=== PATIENT | female | born 1980 | race Caucasian/White ===

== ENCOUNTER 2016-11-19 23:31 | Emergency (ER) | payer OTHER ==
[2016-11-19 23:43] VITALS: BP 136/77; PULSE 95; RESP 18; TEMP 99
[2016-11-20] MEDS ORDERED: RX INFO: IV CONTRAST WAS GIVEN 1 EACH MISC MISCELLANE PRN (00:11)
[2016-11-20] MEDS ORDERED: SODIUM CHLORIDE 0.9% 500 ML IV STA (00:13)
[2016-11-20] MEDS ORDERED: HYDROmorphone 1 MG/ML 1 ML SYRINGE IVP STA (00:13)
[2016-11-20] MEDS ORDERED: ONDANSETRON 4 MG/2 ML VIAL IVP STA (00:13)
[2016-11-20 01:00] LABS: Appearance,Urine Clear (Clear); Bilirubin,Urine Negative (Negative); Glucose,Urine (UA) Negative (Negative); Ketones,Urine Negative (Negative); Leukocyte Esterase,Urine Negative (Negative); Nitrite,Urine Negative (Negative); Protein,Urine Negative (Negative); Specific Gravity,Urine 1.015 (1.001-1.035); UA Billing (MACRO vs. MICRO) CHEM; Urobilinogen,Urine <2.0 mg/dL (<2.0)
[2016-11-20 01:05] LABS: Basophils # (A) 0.1 k/uL (0-0.2); Basophils % (A) 1 %; CH 30.8; CHCM 34.1; Eosinophils # (A) 0.2 k/uL (0-0.7); Eosinophils % (A) 2 %; HCT 43.8 % (34.0-46.0); HDW 2.53; HGB 14.3 gm/dL (11.4-16.0); Luc # (Auto) 0.16; Luc % (Auto) 1; Lymphocytes # (A) 3.3 k/uL (1.0-4.8); Lymphocytes % (A) 30 %; MCH 29.6 pg (25.0-35.0); MCHC 32.6 g/dL (31.0-37.0); MCV 90.7 fL (80.0-100.0); Mean Platelet Volume 6.9; Monocytes # (A) 0.7 k/uL (0-1.0); Monocytes % (A) 6 %; Neutrophils # (A) 6.7 k/uL (1.3-7.7); Neutrophils % (A) 61 %; RBC 4.83 m/uL (3.80-5.40); RDW 13.5 % (11.5-15.5); WBC 11.1 k/uL (3.8-10.6)
[2016-11-20 01:11] LABS: ALT 65 U/L (9-52); AST 27 U/L (14-36); Alkaline Phosphatase 104 U/L (38-126); Anion Gap 9 mmol/L; Blood Urea Nitrogen 12 mg/dL (7-17); Calcium 9.6 mg/dL (8.4-10.2); Carbon Dioxide 26 mmol/L (22-30); Chloride 102 mmol/L (98-107); Glucose 79 mg/dL (74-99); Non-African American GFR(MDRD) >60 (>60 ml/min/1.73 sqM); Potassium 4.2 mmol/L (3.5-5.1); Sodium 137 mmol/L (137-145); Total Bilirubin 0.3 mg/dL (0.2-1.3); Total Protein 6.6 g/dL (6.3-8.2)
[2016-11-20 01:19] LABS: INR 0.9 (<1.2); Partial Thromboplastin Time 22.3 sec (22.0-30.0); Prothrombin Time 9.6 sec (9.0-12.0)
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
== END 2016-11-20 03:51 | disposition home or self-care (01) ==
LOC: EC 23:31
DX: S30.1XXA Contusion of abdominal wall, initial encounter (principal); R07.81 Pleurodynia; F41.9 Anxiety disorder, unspecified; Z79.82 Long term (current) use of aspirin; Z79.899 Other long term (current) drug therapy; Z90.710 Acquired absence of both cervix and uterus; V59.59XA Passenger in pick-up truck or van injured in collision with other motor vehicles in traffic accident, initial encounter; Z98.890 Other specified postprocedural states
CPT/HCPCS: 36415; 80053; 85025; 85610; 85730; 81003; 81025; 71260; 74177; 99285; 96374; 96375; 96361 ×3; J2405; J1170; Q9967

== ENCOUNTER 2016-11-30 14:16 | Observation (INO) | payer OTHER ==
[2016-11-24 14:30] VITALS: BMI 36.8
[~2016-11-30 14:16] MED LIST: DEXAMETHASONE SOD PHOSPHATE 10 MG/ML 1 ML VIAL IV ONE; MIDAZOLAM 2 MG/2 ML VIAL IV PRN; ONDANSETRON 4 MG/2 ML VIAL IVP ONE; SCOPOLAMINE 1.5MG/72HR PATCH TRANSDERM ONE; ceFAZolin 2 GM in SODIUM CHLORIDE 0.9% 100 ML IVPB ONE; fentaNYL (PF) 50 MCG/ML 2 ML AMP IV PRN
[2016-11-30] MEDS ORDERED: LIDOCAINE 1% 20 ML VIAL (10MG/ML) FOR IV START INTRADERMA ONE (14:58)
[2016-11-30] MEDS: LACTATED RINGERS 1,000 ML IV SCH (14:58)
[2016-11-30] MEDS ORDERED: IV FLUID CONTINUATION 1,000 ML IV ONE (15:23)
[2016-11-30] MEDS ORDERED: diphenhydrAMINE 50 MG/ML 1 ML VIAL ONE (15:23)
[2016-11-30] MEDS ORDERED: GLYCOPYRROLATE 0.2 MG/ML 2 ML VIAL ONE (15:23)
[2016-11-30] MEDS ORDERED: ePHEDrine SULFATE/0.9% NACL/PF 50 MG/5 ML SYRINGE IV ONE (15:23)
[2016-11-30] MEDS ORDERED: SUCCINYLCHOLINE CHLORIDE 100 MG/5 ML SYR IV ONE (15:23)
[2016-11-30] MEDS ORDERED: KETAMINE 10 MG/ML 20 ML VIAL ONE (15:23)
[2016-11-30] MEDS ORDERED: fentaNYL (PF) 50 MCG/ML 2 ML AMP ONE (15:23)
[2016-11-30] MEDS ORDERED: PROPOFOL 10 MG/ML 20 ML VIAL IV ONE (15:23)
[2016-11-30] MEDS ORDERED: HYDROmorphone (PF) 1 MG/ML ONE (15:23)
[2016-11-30] MEDS ORDERED: NEOSTIGMINE 1 MG/ML 10 ML VIAL ONE (15:23)
[2016-11-30] MEDS ORDERED: PHENYLEPHRINE-0.9% NACL SYG 1 MG/10 ML SYRINGE ONE (15:23)
[2016-11-30] MEDS ORDERED: MIDAZOLAM 2 MG/2 ML VIAL ONE (15:23)
[2016-11-30] MEDS ORDERED: ROCURONIUM BROMIDE 10 MG/ML 10 ML VIAL IV ONE (15:23)
[2016-11-30] MEDS ORDERED: LACTATED RINGERS 1,000 ML IV ONE (16:45)
[2016-11-30] MEDS ORDERED: HYDROcodone/APAP 5-325MG 1 EACH TAB PO PRN (17:49)
[2016-11-30] MEDS ORDERED: DIAZEPAM 5 MG TAB PO PRN (17:49)
[2016-11-30] MEDS ORDERED: MAGNESIUM HYDROXIDE 2,400 MG/10 ML CUP PO PRN (17:49)
[2016-11-30] MEDS ORDERED: NALOXONE 0.4 MG/ML 1 ML VIAL IV PRN (17:49)
[2016-11-30 18:05] VITALS: RESP 16
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
[2016-11-30] MEDS ORDERED: ROPIVACAINE 5 MG/ML 30 ML VIAL MISCELLANE ONE (18:42)
[2016-11-30] MEDS ORDERED: HYDROmorphone 1 MG/ML 1 ML SYRINGE IVP ONE ×2 (18:53→18:55)
[2016-11-30] MEDS: HYDROcodone/APAP 5-325MG 1 EACH TAB PO PRN (20:02)
--- NOTE | 2016-11-30 20:28 | P.ONQ ---
Anesthesiology Proc Note - PNB - Peripheral Nerve Block Performed Right Popliteal Single Indication: Acute Post-Operative Pain, Requested by physician (Dr Cifuentes) Sedation Type: Sedate with meaningful contact maintained Preparation: Sterile Dressing Position: Supine (lateral) Catheter: None Needle Types: Other (see comment) (ab) Needle Size: 50mm (2") Needle Gauge: 20 Technique: Ultrasound Injectate: 0.5% Ropivacaine (see comment for volume) (20cc) Blood Aspirated: No Pain Paresthesia on Injection Noted: No Resistance on Injection: Normal Events: Uneventful and Well Tolerated
[2016-11-30] MEDS: HYDROmorphone 1 MG/ML 1 ML SYRINGE IVP PRN (20:52)
[2016-11-30] MEDS ORDERED: SENNOSIDES-DOCUSATE SODIUM 1 EACH TAB PO SCH (21:00)
[2016-12-01] MEDS: HYDROmorphone 1 MG/ML 1 ML SYRINGE IVP PRN (00:18)
[2016-12-01] MEDS: ceFAZolin 2 GM in SODIUM CHLORIDE 0.9% 100 ML IVPB SCH ×2 (00:30→08:10)
[2016-12-01] MEDS: LACTATED RINGERS 1,000 ML IV SCH ×2 (01:42→04:37)
[2016-12-01] MEDS: HYDROcodone/APAP 5-325MG 1 EACH TAB PO PRN ×3 (02:17→11:43)
[2016-12-01] MEDS: HYDROmorphone 0.5 MG/0.5 ML SYRINGE IVP PRN ×2 (03:16→06:11)
[2016-12-01 07:51] VITALS: BP 133/85; PULSE 99; TEMP 98.6
--- NOTE | 2016-12-01 08:26 | XR ---
Limited foot HISTORY: Open reduction internal fixation Intraoperative C-arm images document the procedure.
[2016-12-01] MEDS ORDERED: ENOXAPARIN 40 MG/0.4 ML SYRINGE SQ SCH (09:00)
--- NOTE | 2016-12-01 09:45 | FL ---
Fluoroscopy HISTORY: Open reduction internal fixation 2.36 minutes fluoroscopy time supplied to the referring clinician. 7 intraoperative C-arm images doc ument the procedure. See dictated report from .
--- NOTE | 2016-12-01 09:48 | XR ---
Limited right knee HISTORY: Fracture Intraoperative C-arm image documents the procedure
--- NOTE | 2016-12-01 10:07 | P.DS ---
Providers Date of admission: 12/01/16 03:39 Expected date of discharge: 12/01/16 Attending physician: Shukri Rivera Primary care physician: Stated None - Discharge Diagnosis(es) (1) Lisfranc dislocation Patient was admitted to the OR on 11/30/2016 to undergo right Lisfranc ORIF. She had failed conservative measures as an outpatient and desired to proceed with elective surgery after given informed consent. She underwent the above procedure which she tolerated well without complication. Postoperative hospital course has remained without complication. On day of discharge she is afebrile, vital signs stable, labs within acceptable ranges, tolerating by mouth meds and diet, voiding without difficulty, positive flatus, denies abdominal pain or calf pain, pain is controlled on oral pain medication and has no new complaints. Wound is benign, neurovascular status is intact, calf is soft and nontender, abdomen soft and nontender. Review of systems is negative for numbness, tingling, fever, chills, chest pain, shortness breath, nausea, vomiting, dizziness, headaches, slurred speech or other. Current Visit: Yes Status: Acute Priority: Medium Procedures: ORIF right Lisfranc fracture Patient Condition at Discharge: Good Plan - Discharge Summary New Discharge Prescriptions: New HYDROcodone/APAP 10-325MG [Hopkins 10-325] 1 tab PO Q4HR PRN #50 tab PRN Reason: Pain oxyCODONE HCL/ACETAMINOPHEN [Percocet 5-325 mg] 1 tab PO Q6HR PRN #20 tab PRN Reason: Pain Sennosides/Docusate Sodium [Jory-Colace Tablet] 1 tab PO BID #30 tab Aspirin 325 mg PO BID #30 tab No Action FLUoxetine HCL [PROzac] 20 mg PO HS Cetirizine HCl [Zyrtec] 10 mg PO HS Aspirin EC [Ecotrin] 650 mg PO DAILY Hydrocodone/Acetaminophen [Hydrocodone/Acetaminophen 5-300] 2 tab PO Q4H PRN PRN Reason: Pain Discharge Medication List Aspirin EC [Ecotrin] 650 mg PO DAILY 11/19/16 [History] Cetirizine HCl [Zyrtec] 10 mg PO HS 11/19/16 [History] FLUoxetine HCL [PROzac] 20 mg PO HS 11/19/16 [History] Hydrocodone/Acetaminophen [Hydrocodone/Acetaminophen 5-300] 2 tab PO Q4H PRN [History] Aspirin 325 mg PO BID #30 tab 11/30/16 [Rx] HYDROcodone/APAP 10-325MG [Hopkins 10-325] 1 tab PO Q4HR PRN #50 tab 11/30/16 [Rx] Sennosides/Docusate Sodium [Jory-Colace Tablet] 1 tab PO BID #30 tab 11/30/16 [ Rx] oxyCODONE HCL/ACETAMINOPHEN [Percocet 5-325 mg] 1 tab PO Q6HR PRN #20 tab [Rx] Follow up Appointment(s)/Referral(s): Shukri Rivera MD [Medical Doctor] - 12/15/16 9:30 am Patient Instructions/Handouts: Hydrocodone/Acetaminophen (By mouth), Oxycodone/ Acetaminophen (By mouth), Aspirin (By mouth), Laxative, Stimulant Combination ( By mouth), Foot Fracture in Adults (DC) Activity/Diet/Wound Care/Special Instructions: 1. Non weight bearing on your left leg 2. Use crutches or knee scooter to ambulate 3. Keep splint clean and dry. Do not remove. 4. Elevate your leg as much as possible. Discharge Disposition: HOME SELF-CARE
[2016-12-01] MEDS ORDERED: MULTIVITAMINS, THERA 1 EACH TAB PO SCH (12:00)
== END 2016-12-01 13:30 | disposition home or self-care (01) ==
LOC: OR 14:16 → 5ONC 17:32 → OR 12-01 03:39
PROVIDERS: ADMIT Orthopaedic Surgery; ATTEND Orthopaedic Surgery
DX: S93.321A Subluxation of tarsometatarsal joint of right foot, initial encounter (principal); V49.9XXA Car occupant (driver) (passenger) injured in unspecified traffic accident, initial encounter; Z79.899 Other long term (current) drug therapy; Z79.82 Long term (current) use of aspirin; Z79.52 Long term (current) use of systemic steroids; F32.9 Major depressive disorder, single episode, unspecified
CPT/HCPCS: 28485 ×2; 82306; 73560; 73630; G0378; C1713; J2250; J1200; J1100; J2710; J0690 ×2; J2405; J1650; J3010; J1170 ×3; J2795; J2370; J0330; J2704

== ENCOUNTER 2016-12-02 01:25 | Observation (INO) | payer OTHER ==
[2016-12-02] MEDS ORDERED: SODIUM CHLORIDE 0.9% 500 ML IV ONE (02:07)
[2016-12-02] MEDS ORDERED: HYDROmorphone 1 MG/ML 1 ML SYRINGE IVP STA (02:07)
[2016-12-02] MEDS ORDERED: ONDANSETRON 4 MG/2 ML VIAL IVP STA (02:07)
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
[2016-12-02] MEDS ORDERED: NALOXONE 0.4 MG/ML 1 ML VIAL IV PRN (03:14)
[2016-12-02] MEDS ORDERED: ONDANSETRON 4 MG/2 ML VIAL IVP PRN (03:14)
[2016-12-02 04:10] VITALS: BMI 40.0
[2016-12-02] MEDS: HYDROmorphone 1 MG/ML 1 ML SYRINGE IV PRN ×6 (06:03→21:17)
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
[2016-12-02 10:07] VITALS: RESP 16
[2016-12-02] MEDS ORDERED: LORATADINE 10 MG TAB PO SCH (21:00)
[2016-12-03] MEDS: HYDROmorphone 1 MG/ML 1 ML SYRINGE IV PRN ×2 (00:03→06:34)
[2016-12-03 08:12] VITALS: BP 111/67; PULSE 93; TEMP 98.3
[2016-12-03] MEDS ORDERED: IBUPROFEN 800 MG TAB PO PRN (09:07)
--- NOTE | 2016-12-03 09:08 | P.DS ---
Providers Date of admission: 12/02/16 03:12 Expected date of discharge: 12/03/16 Attending physician: Ignacio Bland Primary care physician: Stated None - Discharge Diagnosis(es) (1) Post-op pain Patient was admitted to the OR on 11/30/2016 to undergo right Lisfranc ORIF. She had failed conservative measures as an outpatient and desired to proceed with elective surgery after given informed consent. She underwent the above procedure which she tolerated well without complication. She was discharged on 12/01/16 only to return later that night due to pain control. Otherwise, postoperative hospital course has remained without complication. On day of discharge she is afebrile, vital signs stable, labs within acceptable ranges, tolerating by mouth meds and diet, voiding without difficulty, positive flatus, denies abdominal pain or calf pain, pain is controlled on oral pain medication and has no new complaints. Wound is benign, neurovascular status is intact, calf is soft and nontender, abdomen soft and nontender. Review of systems is negative for numbness, tingling, fever, chills, chest pain, shortness breath, nausea, vomiting, dizziness, headaches, slurred speech or other. Current Visit: Yes Status: Acute Priority: Medium Patient Condition at Discharge: Good Plan - Discharge Summary New Discharge Prescriptions: New oxyCODONE HCL/ACETAMINOPHEN [Percocet 10-325 mg] 1 tab PO Q4HR PRN #30 tab PRN Reason: Pain Aspirin 325 mg PO BID #60 tab No Action FLUoxetine HCL [PROzac] 20 mg PO HS Cetirizine HCl [Zyrtec] 10 mg PO HS HYDROcodone/APAP 10-325MG [[place] 10-325] 1 tab PO Q4HR PRN #50 tab PRN Reason: Pain oxyCODONE HCL/ACETAMINOPHEN [Percocet 5-325 mg] 1 tab PO Q6HR PRN #20 tab PRN Reason: Pain Sennosides/Docusate Sodium [Jory-Colace Tablet] 1 tab PO BID PRN PRN Reason: Constipation Discharge Medication List Cetirizine HCl [Zyrtec] 10 mg PO HS 11/19/16 [History] FLUoxetine HCL [PROzac] 20 mg PO HS 11/19/16 [History] HYDROcodone/APAP 10-325MG [[place] 10-325] 1 tab PO Q4HR PRN #50 tab 11/30/16 [Rx] oxyCODONE HCL/ACETAMINOPHEN [Percocet 5-325 mg] 1 tab PO Q6HR PRN #20 tab [Rx] Sennosides/Docusate Sodium [Jory-Colace Tablet] 1 tab PO BID PRN 12/02/16 [ History] oxyCODONE HCL/ACETAMINOPHEN [Percocet 10-325 mg] 1 tab PO Q4HR PRN #30 tab 12/02 [Rx] Aspirin 325 mg PO BID #60 tab 12/03/16 [Rx] Follow up Appointment(s)/Referral(s): None,Stated [Primary Care Provider] - 1-2 days Shukri Rivera MD [Medical Doctor] - 1 Week Activity/Diet/Wound Care/Special Instructions: Non-weight bearing right foot Elevate right lower extremity Maintain splint, keep clean and dry Take meds as directed F/U with Dr. Rivera in office, [phone] Discharge Disposition: HOME SELF-CARE
== END 2016-12-03 11:38 | disposition home or self-care (01) ==
LOC: EC 01:25 → 6PED 03:12 → 3OBS 15:50
PROVIDERS: ADMIT Orthopaedic Surgery; ATTEND Orthopaedic Surgery
DX: G89.18 Other acute postprocedural pain (principal); R11.0 Nausea; M79.671 Pain in right foot; R33.9 Retention of urine, unspecified; R10.30 Lower abdominal pain, unspecified; R25.2 Cramp and spasm; F41.9 Anxiety disorder, unspecified; F32.9 Major depressive disorder, single episode, unspecified; Z79.899 Other long term (current) drug therapy; Z88.5 Allergy status to narcotic agent
CPT/HCPCS: 99284; 96374; 96361 ×2; 96375 ×2; 96376 ×2; 51798; G0378 ×2; J2405; J1170 ×2

== ENCOUNTER → 2020-02-13 | Outpatient (CLI) | payer OTHER ==
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
== END | disposition home or self-care (01) ==
LOC: SLEEP 16:22
PROVIDERS: ATTEND Internal Medicine Critical Care Medicine
DX: R06.83 Snoring (principal); R53.83 Other fatigue; E66.9 Obesity, unspecified; T78.49XA Other allergy, initial encounter; Z68.38 Body mass index [BMI] 38.0-38.9, adult; Z86.59 Personal history of other mental and behavioral disorders
CPT/HCPCS: 99211

== ENCOUNTER → 2021-04-04 | Outpatient (CLI) | payer OTHER ==
[2021-04-04 14:20] VITALS: TEMP 98.2
[2021-04-04] MEDS: SOTROVIMAB (EUA) 500 MG in SODIUM CHLORIDE 0.9% 100 ML IVPB NR (14:20)
[2021-04-04] MEDS: SODIUM CHLORIDE 0.9% 500 ML 500 ML in EMPTY BAG 1 BAG IV PRN (14:20)
[2021-04-04] MEDS: SODIUM CHLORIDE 0.9% 50 ML IVPB NR (14:43)
[2021-04-04 14:46] VITALS: BP 127/60; PULSE 94; RESP 16
== END ==
LOC: PROCWHC3 13:54
PROVIDERS: ATTEND Family Medicine
DX: U07.1 COVID-19 (principal); Z88.5 Allergy status to narcotic agent
CPT/HCPCS: 96360; Q0247; M0247

== ENCOUNTER → 2022-12-18 | Outpatient (CLI) | payer OTHER ==
[2022-12-19 01:51] LABS: Basophils # (A) 0.04 X 10*3/uL (0.00-0.10); Basophils % (A) 0.3 %; Eosinophils # (A) 0.01 X 10*3/uL (0.04-0.35); Eosinophils % (A) 0.1 %; HCT 42.9 % (37.2-46.3); HGB 13.8 d/dL (12.0-15.0); Lymphocytes # (A) 1.07 X 10*3/uL (0.90-5.00); Lymphocytes % (A) 7.8 %; MCH 29.2 pg (27.0-32.0); MCHC 32.2 d/dL (32.0-37.0); MCV 90.9 FL (80.0-97.0); Mean Platelet Volume 10.2 FL (9.5-12.2); Monocytes % (A) 4.4 %; NRBC Per 100 WBC 0 X 10*3/uL (0.00-0.01); Neutrophils # (A) 11.99 X 10*3/uL (1.80-7.70); Platelet Count 375 X 10*3/uL (140-440); RBC 4.72 X 10*6/uL (4.10-5.20); RDW 12.5 % (11.5-14.5); WBC 13.77 X 10*3/uL (4.50-10.00)
== END | disposition home or self-care (01) ==
LOC: LABPAT 15:32
PROVIDERS: ATTEND Obstetrics & Gynecology
DX: Z01.812 Encounter for preprocedural laboratory examination (principal); N39.3 Stress incontinence (female) (male); I10 Essential (primary) hypertension
CPT/HCPCS: 85025; 93005

== ENCOUNTER → 2022-12-21 | Day surgery (SDC) | payer OTHER ==
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
[2022-12-18 12:11] VITALS: BMI 46.0
[~2022-12-21] MED LIST changes: -DEXAMETHASONE SOD PHOSPHATE 10 MG/ML 1 ML VIAL IV ONE; +DEXAMETHASONE SOD PHOSPHATE 4 MG/ML 1 ML VIAL IV ONE; +ESTRADIOL 0.1 MG/GM VAGINAL CREAM 42.5 GM TUBE VAGINAL ONE; +GENTAMICIN 80 MG in SODIUM CHLORIDE 0.9% 200 ML IRRIGATION ONE; +GENTAMICIN 80 MG/2 ML (MDV) VIAL IRRIGATION ONE; +HYDROmorphone 0.5 MG/0.5 ML SYRINGE IVP PRN; +LACTATED RINGERS 1,000 ML IV ONE; +LACTATED RINGERS 1,000 ML IV SCH; +LIDOCAINE 1% (10MG/ML) FOR IV START INTRADERMA PRN; +LIDOCAINE 1% INJ 10MG/ML (20 ML MDV) ONE; +MIDAZOLAM 2 MG/2 ML VIAL ONE; +PROPOFOL 10 MG/ML 20 ML VIAL IV ONE; +Pre Op ABX Message 1 EACH MISC MISCELLANE ONE; -SCOPOLAMINE 1.5MG/72HR PATCH TRANSDERM ONE; +SODIUM CHLORIDE 0.9% 100 ML with ceFAZolin 2,000 MG IV ONE; +VASOPRESSIN 20 UNIT/ML 1 ML VIAL SQ ONE; -ceFAZolin 2 GM in SODIUM CHLORIDE 0.9% 100 ML IVPB ONE; +droPERidol 5 MG/2 ML VIAL IVP ONE; -fentaNYL (PF) 50 MCG/ML 2 ML AMP IV PRN; +fentaNYL (PF) 50 MCG/ML 2 ML AMP ONE
[2022-12-21 09:17] LABS: Glucose,Whole Blood 105 mg/dL (70-110)
[2022-12-21 09:45] VITALS: RESP 16
--- NOTE | 2022-12-21 10:51 | P.OP ---
Date of Procedure: 12/21/22 Preoperative Diagnosis: Stress Urinary Incontinence Postoperative Diagnosis: Same Procedure(s) Performed: TVT Midurethral Sling and Cystoscopy Implants: [employer] Advantage Fit Blue System LOT#[id number] Anesthesia: RAOUL Surgeon: Eloisa Harmon Estimated Blood Loss (ml): 50 IV fluids (ml): 500 Urine output (ml): 200 Pathology: none sent Condition: stable Disposition: same day Indications for Procedure: Ms. Poe is a 42 year old female with stress urinary incontinence. She has daily leakage of urine and requires menstrual pad use to contain the leaks. The risks, benefits, and advantages of TVT Midurethral Sling and Cystoscopy including risk of bleeding, infection, bladder perforation, urinary retention, urinary tract infection, need for short-term indwelling hinojosa catheter, and damage to surrounding structures. The patient understands these risks and desires to proceed with surgery as scheduled. All questions are answered. Operative Findings: Under cystoscopy, left trocar perforation through the bladder is noted. This trocar is removed and replaced. Cystourethroscopy is again performed confirming ideal placement of bilateral trocars with no trauma or perforation of the bladder. Bilateral ureteral jets are visualized. The urethra does not show any evidence of trauma from sling placement. Description of Procedure: The patient was taken to the operating room, where general anaesthesia was obtained. The patient was placed in the dorsal lithotomy position in Gregory stirrups, prepped,and draped in normal sterile fashion. A Hinojosa catheter was placed into the bladder. Attention was then turned to the TVT part of the procedure. Two sites were marked on the anterior abdominal wall with a marking pen, one 1 fingerbreadth to the left and the other 1 fingerbreadth to the right of the midline, just above the pubic bone.Two sites were marked on the anterior abdominal wall with a marking pen, one 1 fingerbreadth to the left and the other 1 fingerbreadth to the right of the midline, just above the pubic bone. Attention was now turned to the vaginal field where a 18-Pashto Hinojosa catheter was already present, and the urine was drained. Retractors were used for visualization. The anterior vaginal wall over the location of the mid urethra was then injected with 1% lidocaine with epinephrine in the mid portion of the vagina and the lateral aspects heading to the inferior surface of the pubic bone bilaterally. Two Allis clamps were then placed approximately 2 cm apart with the mid portion of the Allis clamps corresponding to the mid portion of the urethra as determined by palpation of the Hinojosa within the patient's urethra. A scalpel was then used to incise between the 2 Allis clamps, and Metzenbaum scissors were used to dissect the vaginal mucosa off the urethra heading to the inferior surface of the pubic bone bilaterally. The [employer] Advantage Fit TVT trocar coupled to the plastic introducer sheath was now placed through the right sided anterior vaginal wall channel, and the trocar was rotated through the right retropubic space with careful attention being paid to stay beneath and behind the pubic bone as it rotated through the space up to the previously made donato on the right anterior abdominal wall. The TVT trocar was uncoupled from the introducer sheath and the sheath was tagged and left in place. The TVT trocar was now placed into the second introducer sheath and positioned within the left anterior vaginal wall channel and rotated through the left retropubic space with careful attention being paid to stay beneath and behind the pubic bone as it rotated through this site up to the previously made donato on the left anterior abdominal wall. 70-degree cystourethroscope was used and the left trocar is noted to have perforated the bladder. This trocar is removed and replaced. Cystourethroscopy is then again performed to confirm that there was no trocar placement trauma to the bladder from either side, and no trauma to the urethra. Bilateral ureteral jets were visualized. Therefore, the bladder was drained, and the mesh was brought through the abdominal wall site. The mesh was brought to sit underneath of the urethra without any tensioning at all as determined by a hemostat used as a spacer between the urethra and the sling. The hemostat as a spacer was used to stabilize the position of the mesh as plastic sheaths were removed through the abdominal wall site. The skin wounds were closed with the use of skin glue after trimming the mesh. The vaginal wound was closed with a r unning stitch of 3-0 Vicryl. Estrace vaginal cream is applied to the vagina and vulva at the end of the case. Hemostasis was noted to be excellent throughout, and final sponge, instrument, and needle count was noted to be correct. The patient was moved back to the preoperative holding area in stable condition having tolerated the procedure well.
[2022-12-21 11:04] VITALS: TEMP 97.6
[2022-12-21 13:41] VITALS: BP 109/70; PULSE 70
== END | disposition home or self-care (01) ==
LOC: OR 08:42 → 4FBP 10:34 → OR 10:34
PROVIDERS: ATTEND Obstetrics & Gynecology
DX: N39.3 Stress incontinence (female) (male) (principal); J45.909 Unspecified asthma, uncomplicated; Z90.49 Acquired absence of other specified parts of digestive tract; Z90.710 Acquired absence of both cervix and uterus; Z98.891 History of uterine scar from previous surgery; Z98.890 Other specified postprocedural states; Z79.899 Other long term (current) drug therapy; Z88.5 Allergy status to narcotic agent
CPT/HCPCS: 57288; J2250; J1580; J1100; J2405; J0690; J2001; J3010; J2704; J1170; J1790

== ENCOUNTER → 2023-02-11 | Outpatient (CLI) | payer OTHER ==
--- NOTE | 2023-02-18 22:24 | MM ---
Reason for Exam: Screening (asymptomatic). Last mammogram was performed 9 year(s) and 7 month(s) ago. Patient History: Menarche at age 11. First Full-Term at age 24. Hysterectomy at age 32. Maternal cousin had breast cancer, age 16. Risk Values: Nova 5 year model risk: 0.5%. NCI Lifetime model risk: 9.9%. Prior Study Comparison: 06/29/2013 Bilateral Diagnostic Mammogram, [facility]. Tissue Density: The breast tissue is heterogeneously dense. This may lower the sensitivity of mammography. Findings: Analyzed By CAD. Medial asymmetric density left cc view has become more defined and further evaluation is recommended. Central asymmetric density right MLO view has become more defined as well. Further evaluation is recommended. Otherwise, no significant change. Overall Assessment: Incomplete: need additional imaging evaluation, BI-RAD 0 Management: Special View Mammogram of both breasts. Diagnostic Breast Ultrasound of both breasts. 1. Additional views left breast to include spot 3-D CC, 3-D CC rolled, and 3-D LM views. 2. Additional views right breast including spot 3-D MLO and 3-D lateral views. 3. Targeted ultrasound of either breast Wednesday persisting abnormality . [facility] will attempt to contact patient to return for supplemental views and ultrasound if indicated. Electronically signed and approved by: Cristine Patel M.D. Radiologist
== END | disposition home or self-care (01) ==
LOC: RADMAMWWP 16:22
PROVIDERS: ATTEND Family Medicine
DX: Z12.31 Encounter for screening mammogram for malignant neoplasm of breast (principal); Z80.3 Family history of malignant neoplasm of breast
CPT/HCPCS: 77067

== ENCOUNTER → 2023-03-08 | Outpatient (CLI) | payer OTHER ==
--- NOTE | 2023-03-08 09:12 | MM ---
Reason for Exam: Additional evaluation requested from prior study. Last screening mammogram was performed less than 1 month ago. Patient History: Menarche at age 11. First Full-Term at age 24. Hysterectomy at age 32. Maternal cousin had breast cancer, age 16. Risk Values: Nova 5 year model risk: 0.6%. NCI Lifetime model risk: 9.8%. Prior Study Comparison: 06/29/2013 Bilateral Diagnostic Mammogram, [facility]. 02/11/2023 Bilateral MG screening mammo w CAD, [facility]. Tissue Density: The breast tissue is heterogeneously dense. This may lower the sensitivity of mammography. Findings: Analyzed By CAD. Under compression the left asymmetric density may have some persistence within the upper portion posterior right breast 9 cm from the nipple. Ultrasound is recommended. Under compression no discrete architectural distortion and spiculated or lobular mass within the right breast 5 cm the nipple is identified. Ultrasound is recommended for additional workup of these findings. Overall Assessment: Incomplete: need additional imaging evaluation, BI-RAD 0 Management: Diagnostic Breast Ultrasound of both breasts. A negative mammogram report should not preclude additional follow up of suspicious palpable abnormalities. Patient should continue monthly self breast exam. A clinical breast exam by your physician is recommended on an annual basis and results should be correlated with mammographic findings. Electronically signed and approved by: Wilfrid Reyes D.O. Radiologis
--- NOTE | 2023-03-08 10:00 | USB ---
Reason for Exam: Additional evaluation requested from abnormal screening. Patient History: Menarche at age 11. First Full-Term at age 24. Hysterectomy at age 32. Maternal cousin had breast cancer, age 16. Risk Values: Nova 5 year model risk: 0.6%. NCI Lifetime model risk: 9.8%. Technique: Method: Targeted. Prior Study Comparison: 06/29/2013 Bilateral Diagnostic Mammogram, [facility]. 02/11/2023 Bilateral MG screening mammo w CAD, [facility]. Findings: The whole breast of the right breast, the upper inner quadrant of the left breast, the axilla of both breasts and the retroareolar of both breasts were scanned. Right breast: There are a few scattered ducts. No suspicious masses or cysts. Left breast: No suspicious solid or cystic areas evident. No ultrasound abnormality to correlate with mammographic findings bilateral breasts. Overall Assessment: Benign, BI-RAD 2 Management: Screening Mammogram of both breasts in 6 months. A clinical breast exam by your physician is recommended on an annual basis and results should be correlated with mammographic findings. This exam should not preclude additional follow-up of suspicious palpable abnormalities. Results were given to the patient verbally at the time of exam. Electronically signed and approved by: Wilfrid Reyes D.O. Radiologis
== END | disposition home or self-care (01) ==
LOC: RADMAMWWP 08:37
PROVIDERS: ATTEND Family Medicine
DX: R92.333 Mammographic heterogeneous density, bilateral breasts (principal); Z80.3 Family history of malignant neoplasm of breast
CPT/HCPCS: 77062; 77066

== ENCOUNTER → 2023-05-25 | Outpatient (CLI) | payer OTHER ==
[2023-05-25 14:17] VITALS: BP 119/79; PULSE 94; RESP 12; TEMP 98.3
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
== END ==
LOC: 3 N SLEEP 13:33
PROVIDERS: ATTEND Internal Medicine Critical Care Medicine
DX: G47.10 Hypersomnia, unspecified (principal); G47.12 Idiopathic hypersomnia without long sleep time; G47.419 Narcolepsy without cataplexy; F32.A Depression, unspecified; E66.9 Obesity, unspecified; F41.9 Anxiety disorder, unspecified; M79.7 Fibromyalgia; G89.29 Other chronic pain; J45.909 Unspecified asthma, uncomplicated; Z68.36 Body mass index [BMI] 36.0-36.9, adult; Z88.5 Allergy status to narcotic agent
CPT/HCPCS: 99211

== ENCOUNTER 2023-06-27 19:41 | Outpatient (CLI) | payer OTHER ==
--- NOTE | 2023-07-11 23:34 | P.PCN ---
Date of Procedure: 07/27/23 Operative Findings: Polysomnography report Date of services 06/27/2023 Pertinent history This is a 43-year-old female patient presented to the sleep center with symptoms of chronic hypersomnia and the patient carries an Portal score of 12. The patient is currently sleeping approximately 11 hours and despite that she is still feeling fatigued and sleepy. The patient has gained around 90 pounds over the past 5 years. Narcolepsy was felt to be less likely due to absence of sleep paralysis hallucinations or cataplexy. She has chronic anxiety and depression maintained on Prozac and fibromyalgia with chronic pain and bronchial asthma and allergies Pertinent physical findings The patient has a height of 5 feet, body mass index of 46.9 with a weight of 240 pounds Technical description The patient was studied using a standard complex polysomnography protocol that included recording of the 2 EKG, Central, occipital and frontal EEG, right and left outer canthus EOG, submental EMG, right and left anterior tibialis EMG, respiratory airflow by thermocouple and or pressure/flow transducer, respiratory efforts by abdominal and thoracic PVDF belts, oxygen saturation by cable oximetry. Position by observation synchronized the PSG. 4 children 12 and nontender and select patients, ETCO2 may be added to the recording. Equipment used: [employer]. Sleep architecture The total recording duration was 444.5 minutes. The total sleep time was 370.5 minutes. The sleep efficiency was calculated to be at 83.4%. The latency to sleep onset was 21.5 minutes. The latency to REM sleep was 84 minutes. The sleep architecture was catheterized by 3.5% stage I, 71.4% stage II, 14.8% stage III, and 10.4% REM sleep. The wake after sleep onset time was 41.5 minutes. The total arousal index was 6 Respiratory analysis This sleep study showed no total of 92 obstructive respiratory events of which 1 was obstructive apnea, 0 was mixed apnea, 91 with obstructive hypopneas and the resulting AHI was 14.5. The patient was sent a total of 2 central apneas with a central apnea index of 0.3. Noted the patient's disease was worse during REM sleep with an AHI of 49.9 during REM. It was nonpositional. Oxygenation analysis The sleep study showed a minimum pulse ox of 84%. The baseline oxygen sat uration while awake was 94%. The patient spent approximately 1 hours and 32 minutes of sleep time below pulse ox of 89%. Minimum pulse ox during REM sleep was 84% Limb movement summary The patient had a total of 2 periodic limb movements with arousals with an index of 0.3 Sleep continuity summary There was a total of 37 arousals with an index of 6.0. The respiratory arousal index was 0.3 Cardiac summary Average heart rate was 91 with a minimum heart rate of 86 and a maximum heart rate of 96 Assessment Mild obstructive sleep apnea with an AHI of 14, worse during REM sleep. Nocturnal oxygen saturation minimum pulse ox of 84% during REM sleep Snoring Chronic anxiety and depression patient has been maintained on Prozac and the patient did not start the medication prior to testing. Based on that, and MSLT was not possible. Fibromyalgia Chronic bronchial asthma Plan This patient's symptoms are out of proportion to the severity of obstructive sleep apnea. The patient is sleep apnea is mild in severity with an AHI of 14. Nevertheless, there is considerable number of nocturnal oxygen saturations. Patient's symptoms of chronic hypersomnia sleepiness and fatigue could be partially related to obstructive sleep apnea although this may not explain the patient's symptoms in its entirety. It is possible that the comorbidities are also contributing to her sleepiness. Based on the fact that the patient has sleep apnea, I thought it was worthwhile to give the patient a trial of CPAP therapy and evaluate for clinical response. Obviously, an MSLT while being off of Prozac may be of value if the patient remains symptomatic while being on CPAP therapy. Will continue to follow. The patient will be asked to come into the sleep center to undergo a CPAP titration.
== END 2023-06-28 06:05 | disposition home or self-care (01) ==
LOC: 3 N SLEEP 19:41
PROVIDERS: ATTEND Internal Medicine Critical Care Medicine
DX: G47.33 Obstructive sleep apnea (adult) (pediatric) (principal); G47.10 Hypersomnia, unspecified; G47.36 Sleep related hypoventilation in conditions classified elsewhere; G47.52 REM sleep behavior disorder; F32.A Depression, unspecified; F41.9 Anxiety disorder, unspecified; M79.7 Fibromyalgia; J45.909 Unspecified asthma, uncomplicated; G89.29 Other chronic pain; Z68.42 Body mass index [BMI] 45.0-49.9, adult; Z88.5 Allergy status to narcotic agent
CPT/HCPCS: 95810

== ENCOUNTER 2023-08-22 20:04 | Outpatient (CLI) | payer OTHER ==
--- NOTE | 2023-09-12 23:05 | P.PCN ---
Date of Procedure: 09/21/23 Operative Findings: Date of services 08/22/2023 Pertinent history This is a 43-year-old female patient presented to the sleep center with symptoms of chronic hypersomnia and the patient carries an Flora score of 12. The patient is currently sleeping approximately 11 hours and despite that she is still feeling fatigued and sleepy. The patient has gained around 90 pounds over the past 5 years. Narcolepsy was felt to be less likely due to absence of sleep paralysis hallucinations or cataplexy. She has chronic anxiety and depression maintained on Prozac and fibromyalgia with chronic pain and bronchial asthma and allergies. The patient underwent a polysomnography and the patient was diagnosed having mild NICHOLE with an AHI of 14 and the patient is undergoing a CPAP titration. Pertinent physical findings The patient has a height of 5 feet, body mass index of 46.9 with a weight of 240 pounds Technical description The patient was studied using a standard complex polysomnography protocol that included recording of the 2 EKG, Central, occipital and frontal EEG, right and left outer canthus EOG, submental EMG, right and left anterior tibialis EMG, respiratory airflow by thermocouple and or pressure/flow transducer, respiratory efforts by abdominal and thoracic PVDF belts, oxygen saturation by cable oximetry. Position by observation synchronized the PSG. 4 children 12 and nontender and select patients, ETCO2 may be added to the recording. Equipment used: [employer]. CPAP titration was done in a stepwise fashion and the pressure was increased by increments of 1 cm to eliminate all obstructive events. Sleep architecture The total recording duration was 372.5 minutes. The total sleep time was 275.0 minutes. The overall sleep efficiency was 73.8%. The latency to sleep onset was 51.5 minutes. The latency to REM sleep was 155.5 minutes. The sleep architecture was catheterized by 7.5% stage I, 83.3% stage II, 0.7% stage III, and 11.3% REM sleep. The total arousal index was 8.3. Respiratory analysis CPAP titration was initially started at a pressure of 7 cm of water pressure was gradually increased by increments of 1 cm of water to reach a maximum CPAP pressure of 11 cm of water. This was successful titration. All sleep stages were encountered. The patient was studied in REM and non-REM sleep. At target CPAP pressure of 11 cm of water, there was completed ablation of the obstructive respiratory events without any oxygen desaturations and elimination of the obstructive apneas and hypopneas was noted. No central events emerged during the study. Limb movement summary The patient had a total of 1 periodic limb movements with arousals with an index of 0.2 Sleep continuity summary There was a total of 38 arousals with an index of 8.3. The respiratory arousal index was 0.2 Cardiac summary Average heart rate was 84 with a minimum heart rate of 78 and a maximum heart rate of 90 Assessment Mild obstructive sleep apnea with an AHI of 14, worse during REM sleep.The patient had a successful CPAP titration Nocturnal oxygen saturation minimum pulse ox of 84% during REM sleep, recovered with CPAP therapy Snoring Chronic anxiety and depression patient has been maintained on Prozac and the patient did not start the medication prior to testing. Based on that, and MSLT was not possible. Fibromyalgia Chronic bronchial asthma Plan Initiate CPAP therapy, APAP mode pressures of 5/11 cm of water. The patient is will be offered an AirFit N20 small size nasal mask. The patient will see back in the short-term follow-up for a compliance check. Will continue to follow.
== END 2023-08-23 05:45 | disposition home or self-care (01) ==
LOC: 3 N SLEEP 20:04
PROVIDERS: ATTEND Internal Medicine Critical Care Medicine
DX: G47.33 Obstructive sleep apnea (adult) (pediatric) (principal); G47.36 Sleep related hypoventilation in conditions classified elsewhere; F41.9 Anxiety disorder, unspecified; F32.A Depression, unspecified; M79.7 Fibromyalgia; J45.909 Unspecified asthma, uncomplicated; Z88.5 Allergy status to narcotic agent
CPT/HCPCS: 95811

== ENCOUNTER → 2024-01-18 | Outpatient (CLI) | payer OTHER ==
[2024-01-19 12:40] LABS: Alternaria alternata IgE <0.10 kU/L; Aspergillus fumagatus IgE <0.10 kU/L; Birch IgE <0.10 kU/L; Cat Epith & Dander IgE <0.10 kU/L; Cladosporian herbarum IgE <0.10 kU/L; Cockroach IgE <0.10 kU/L; Dermato. farinae IgE <0.10 kU/L; Dog Dander IgE <0.10 kU/L; Elm IgE <0.10 kU/L; Maple (Box Elder) IgE <0.10 kU/L; Oak IgE <0.10 kU/L; Ragweed,Common IgE <0.10 kU/L; Red Top (Bentgrass) IgE <0.10 kU/L
== END | disposition home or self-care (01) ==
LOC: LABWHC1 11:55
PROVIDERS: ATTEND Internal Medicine Critical Care Medicine
DX: R06.2 Wheezing (principal)
CPT/HCPCS: 36415; 82785; 85008; 86003